=== PATIENT | female | born 1980 | race Caucasian/White ===

== ENCOUNTER 2017-12-22 17:44 | Emergency (ER) | payer OTHER ==
[2017-12-22] MEDS: HYDROCODONE/APAP (5/325) TAB PO (19:51)
[2017-12-22] MEDS: PROPOFOL 40 ML (20:21)
== END 2017-12-22 21:39 | disposition home or self-care (01) ==
LOC: FTE 17:44
DX: R51 Headache (principal); R11.0 Nausea; M54.2 Cervicalgia
CPT/HCPCS: 70450; 72125; 99285-25